=== PATIENT | female | born 1960 | race Caucasian/White ===

== ENCOUNTER 2023-05-28 09:28 | Day surgery (SDC) | payer OTHER, SELFPAY ==
[2023-05-28] VITALS (7 sets, daily range): BP systolic 83–109; BP diastolic 40–63; PULSE 59–69; RESP 13–21; TEMP 36–37.1; O2SAT 98–100; BMI 20.9
[2023-05-28] MEDS: LACTATED RINGERS 1,000 ML 42 ML IV (09:48)
--- NOTE | 2023-05-28 11:04 | P.HP_ITS ---
History of Present Illness History of Present Illness Date Patient Seen: 05/28/23 Time Patient Seen: 11:04 Chief complaint: Colonoscopy Narrative: 62-year-old woman here for routine screening colonoscopy. Last colonoscopy 2013 in [place] unremarkable. No abdominal concerns today including pain unintentional weight loss blood per rectum. No family history of intestinal malignancy. [facility] Surgical History (Updated 10/29/17 @ 06:05 by Conversion Provider) Status post delivery Family History (Updated 02/02/16 @ 00:00 by Conversion Provider) Father Age: 85 Lung cancer Heart disease Hypertension High cholesterol Mental health problem Stroke Grandfather Lung cancer Grandfather Heart disease Grandmother Stroke Social History household members: spouse Smoking Status: Never smoker alcohol intake: current Meds Home Medications and Allergies Home Medications Medication Instructions Recorded Confirmed Type azelastine 137 mcg (0.1 %) nasal 1 spray intranasal BID 05/28/23 05/28/23 History spray aerosol multivitamin 1 tab PO DAILY 05/28/23 05/28/23 History valacyclovir 1 gram tablet 1,000 mg PO BID PRN coldsores 05/28/23 05/28/23 History Allergies Allergy/AdvReac Type Severity Reaction Status Date / Time No Known Drug Allergies Allergy Verified 05/28/23 09:56 Exam Vital Signs (past 8 hours): - 05/28/23 09:58 Temperature 98.8 F Pulse Rate 69 Respiratory Rate 16 Blood Pressure 109/63 Pulse Oximetry 100 Oxygen Delivery Method Room Air Oxygen Delivery Method Room Air Narrative Exam Narrative: General adult woman alert oriented no acute distress Chest nonlabored respiration Extremities warm well perfused Assessment & Plan Assessment & Plan narrative: The patient requires colorectal screening and colonoscopy is recommended. Technical details were discussed. Risks, benefits, alternatives explained. Risks including but not limited to myocardial infarction, aspiration, bleeding, pain, missed lesion, incomplete examination, need for further radiographic studies, colonic perforation, and need for major abdominal surgery were discussed. All questions were answered to their satisfaction, and they are in agreement with this plan.
--- NOTE | 2023-05-28 11:34 | P.OP.COLON_ITS ---
Operative Date/Time/Diagnoses Date of procedure: 05/28/23 Time of procedure: 11:35 Pre-op diagnosis: Colorectal screening Procedure & Clinicians Study performed: Colonoscopy Same procedure as scheduled: Yes Indications: Colorectal screening Surgeon: James Garrido Procedure Notes Procedure in detail: The history and physical was performed/updated and the patient is ASA class is 2. The procedure was discussed in detail with the patient. Potential risks complications including infection, bleeding, missed diagnosis, perforation, need for surgery, and were explained. Their questions were answered and informed consent was obtained. Patient was brought to the procedure room and placed standard monitoring equipment. The patient's vital signs were monitored continuously throughout the entire procedure. Prior to starting time-out was performed. The patient was placed in the left lateral recumbent position. Procedural sedation was administered by anesthesia. Examination began with a thorough inspection of the perianal area there was no evidence of fissures, fistulae, external hemorrhoids or cutaneous malignancy. The colonoscopy scope was then placed into the anal canal and was advanced to the cecum, which was identified by the ileocecal valve , the appendiceal orifice and the confluence of the taenia. The scope was then slowly withdrawn examining colon thoroughly in all directions, irrigating it of any residual stool. The scope was retroflexed within the rectum The patient tolerated the procedure well. They will be discharged once criteria are met. The prep was of good/excellent quality. The withdrawl time was 7 minutes. FINDINGS * Unremarkable colonoscopy. No masses, polyps, or inflammation * Sigmoid mild diverticulosis Specimen(s): none sent Impression: Normal colonoscopy Post-procedure Recommendations: Colonoscopy in 10 years and High fiber diet Disposition: same day surgery
== END 2023-05-28 11:59 | disposition home or self-care (01) ==
PROVIDERS: Family Provider Nurse Practitioner; PCP Family Medicine; Referring Provider Surgery; Visit Provider Surgery
PROC: 0DJD8ZZ Inspection of Lower Intestinal Tract, Via Natural or Artificial Opening Endoscopic (ICD-10-PCS; CPT 45378; principal; 2023-05-28 10:45)
DX: Z12.11 Encounter for screening for malignant neoplasm of colon (principal); K57.30 Diverticulosis of large intestine without perforation or abscess without bleeding
CPT/HCPCS: 45378

== ENCOUNTER → 2025-03-19 14:25 | Outpatient (CLI) | payer BC, SELFPAY ==
[2025-03-22 09:14] LABS: Trichomoas vaginalis Negative (Negative)
== END ==
PROVIDERS: Family Provider Nurse Practitioner; PCP Family Medicine; Visit Provider Obstetrics & Gynecology
DX: A60.04 Herpesviral vulvovaginitis (principal); N89.8 Other specified noninflammatory disorders of vagina
CPT/HCPCS: 81514; 87491; 87563; 87591